=== PATIENT | male | born 1970 | race Caucasian/White ===

== ENCOUNTER 2017-12-22 14:12 | Inpatient (IN) ==
--- NOTE | 2017-12-22 14:57 | Emergency Department Note ---
ED Disposition Clinical Impression: Abscess of skin or subcutaneous tissue Qualifiers: Site of cutaneous abscess: buttock Qualified Code(s): L02.31 - Cutaneous abscess of buttock Disposition: Admitted as Observation Condition on Discharge: Good Instructions: DI for Skin Abscess Referrals: Yaakov Titus [Primary Care Provider] - - Critical Care Critical Care Time: No Attestation: On 12/22/17, the high probability of a clinically significant, sudden or life threatening deterioration of the following system(s) required my full and direct attention, intervention and personal management. The time I documented below is in addition to time spent performing reported procedures but includes the following listed in this critical care notation. Medical Decision Making - Medical Records Medical records reviewed: Yes: I reviewed the patient's medical records. - [place] Inquiry Pt receiving controlled substance: No Vital Signs: 12/22/17 14:16 12/22/17 15:37 Temperature 98.1 F Temperature Source Oral Pulse Rate [Right Brachial] 74 67 Respiratory Rate 18 18 Blood Pressure [Right Arm] 145/79 128/65 Blood Pressure Mean [Right Arm] 101 86 Blood Pressure Source [Right Arm] Automatic Cuff Automatic Cuff Blood Pressure Position [Right Arm] Sitting Sitting 02 Sat by Pulse Oximetry 96 98 Oxygen Delivery Method Room Air Room Air - Lab Data Lab results reviewed: Yes: I reviewed the patient's lab results. Lab Results 12/22/17 15:10: WBC 4.1 L, RBC 4.00 L, Hgb 11.5 L, Hct 34.9 L, MCV 87.2, MCH 28.7, MCHC 33.0, RDW 14.8, Plt Count 256, MPV 6.8 L, Neut % (Auto) 65.5, Lymph % (Auto) 21.2, [place] % (Auto) 7.4, Eos % (Auto) 5.5, Baso % (Auto) 0.5, Neut # ( Auto) 2.7, Lymph # (Auto) 0.9, [place] # (Auto) 0.3, Eos # (Auto) 0.2, Baso # (Auto ) 0.0 12/22/17 15:10: Sodium 140, Potassium 3.7, Chloride 104, Carbon Dioxide 27, Anion Gap 12.7, BUN 9, Creatinine 0.86, Estimated Creat Clear 148, Estimated GFR 95, Est GFR ( Amer) 115, Glucose 108 H, Calcium 8.5, Total Bilirubin 0.3, Direct Bilirubin 0.1, Indirect Bilirubin 0.2, AST 11 L, ALT 17, Alkaline Phosphatase 101, Total Protein 6.6, Albumin 2.6 L 12/22/17 15:10: Lactate 0.6 12/22/17 15:10: Hemoglobin A1c 5.6 Result diagrams: 12/22/17 15:10 12/22/17 15:10 Orders (Tests/Meds): ORDERS Category Date Time Status ESR [Erythrocyte Sedimentation Rate] Stat Lab 12/22/17 15:10 Received Blood Culture Stat Micro 12/22/17 15:10 Received Wound Culture and Gram Stain Stat Micro 12/22/17 15:10 Received Skin/Abscess/FB HPI - General Chief complaint: Skin/Abscess/Foreign Body Stated complaint: boil under left shoulder, anal area, under right Time Seen by Provider: 12/22/17 14:25 Mode of Arrival: Ambulatory Source of Information: Patient, Medical Record Limitations: No Limitations Description of Symptoms (Recalled from ER Triage Doc. by RN): Pt reports he has a boil under L arm that is draining x3 days, reports has a boil on R buttock that is open and draining, pt also reports has a "boil starting" under R arm - History of Present Illness HPI narrative: progressive abscess to rt buttock and axilla over the last few days at snf - no hx of mrsa or diabetes mellitus - MD complaint: abscess/boil Onset (ago): day(s) Tetanus up to date: unsure Location: buttocks Severity: moderate Associated symptoms: denies other symptoms Treatments prior to arrival: none - Related Data Home Medications Medication Instructions Recorded Confirmed Unobtainable 11/29/17 11/29/17 Allergies Allergy/AdvReac Type Severity Reaction Status Date / Time No Known Allergies Allergy Verified 11/28/17 17:53 [facility] History I have reviewed the patient's past medical history: Yes Medical History: Denies:: Diabetes Mellitus Type 1, Diabetes Mellitus Type 2, MRSA Amputation: No - Social History Alcohol Intake: never Alcohol Intake Frequency:: holidays/special occasions only - Psychiatric History Expresses thoughts of harming self/others: None Suicide Plan Description: No Plan ROS Obtained: Yes All systems reviewed & no additional complaints - Constitutional Constitutional: Denies fever(s) - Eyes Eyes: Denies change in vision - ENT Ears, Nose, Mouth, and Throat: Denies sore throat - Cardiovascular Cardiovascular: Denies chest pain at rest - Respiratory Respiratory: No chest congestion - Gastrointestinal Gastrointestingal: Denies: abdominal pain - Genitourinary Male Genitourinary: Denies hematuria - Musculoskeletal Musculoskeletal: Reports joint pain - Integumentary/Breasts Skin/Breast: Reports boil - Neurologic Neurologic: Denies seizure-like activity Physical Exam - General General appearance: in no apparent distress - Eye Eye exam: Present: PERRL, EOMI - ENT ENT exam: Present: mucous membranes dry - Neck Neck exam: Present: trachea midline - Respiratory Respiratory exam: Present: normal lung sounds bilaterally. Absent: respiratory distress - Cardiovascular Cardiovascular exam: Present: regular rate, systolic murmur - Abdominal Exam Abdominal exam: Present: soft - Extremities Exam Extremities exam: Present: pedal edema. Absent: calf tenderness - Neurological Exam Neurological exam: Present: alert, oriented X3, CN II-XII intact - Psychiatric Psychiatric exam: Present: normal affect - Skin Skin exam: Present: other (has draining abscess rt buttock and has cellulitis axilla bilat )
[2017-12-22 15:28] LABS: Basophils % 0.5 % (0.1-2.0); Eosinophils # 0.2 K/mm3 (0.0-0.4); Eosinophils % 5.5 % (0.1-12.0); Hematocrit 34.9 % (42.0-52.0); Hemoglobin 11.5 g/dL (14.1-18.0); Lymphocytes # 0.9 K/mm3 (0.7-4.5); Lymphocytes % 21.2 K/mm3 (10-50); Mean Corpuscular Hemoglobin 28.7 pg (27.0-31.2); Mean Corpuscular Volume 87.2 fl (80-94); Mean Platelet Volume 6.8 fl (7.4-10.4); Monocytes # 0.3 K/mm3 (0.1-1.0); Monocytes % 7.4 % (1.7-9.3); Neutrophils # 2.7 K/mm3 (1.8-7.8); Neutrophils % 65.5 % (37.0-80.0); Platelet Count 256 K/mm3 (142-424); Red Cell Distribution Width 14.8 % (11.5-17.5); White Blood Count 4.1 K/mm3 (4.8-10.8)
[2017-12-22 15:40] LABS: Albumin Level 2.6 gm/dL (3.4-5.0); Anion Gap 12.7 mEq/L (5-15); Bilirubin,Direct 0.1 mg/dL (0.0-0.2); Bilirubin,Indirect 0.2 mg/dL (0.0-0.9); Bilirubin,Total 0.3 mg/dL (0.2-1.0); Calcium 8.5 mg/dL (8.5-10.1); Potassium 3.7 mmoL/L (3.5-5.1); Total Protein,Serum 6.6 gm/dL (6.4-8.2)
--- NOTE | 2017-12-22 16:26 | Pharmacy Consult Notes ---
- Pharmacy Consult Date: 12/22/17 Time: 16:25 Referring provider: DR. PINEDA Reason for Consult:: VANCOMYCIN DOSING Allergies and ADEs:: Allergies Allergy/AdvReac Type Severity Reaction Status Date / Time No Known Allergies Allergy Verified 11/28/17 17:53 Home Medications:: Home Medications Medication Instructions Recorded Confirmed Type Unobtainable 11/29/17 11/29/17 History Height: 1.75 m Weight: 99.79 kg Laboratory Results:: Laboratory Results - last 24 hr 12/22/17 15:10: WBC 4.1 L, RBC 4.00 L, Hgb 11.5 L, Hct 34.9 L, MCV 87.2, MCH 28.7, MCHC 33.0, RDW 14.8, Plt Count 256, MPV 6.8 L, Neut % (Auto) 65.5, Lymph % (Auto) 21.2, [place] % (Auto) 7.4, Eos % (Auto) 5.5, Baso % (Auto) 0.5, Neut # ( Auto) 2.7, Lymph # (Auto) 0.9, [place] # (Auto) 0.3, Eos # (Auto) 0.2, Baso # (Auto ) 0.0 12/22/17 15:10: Sodium 140, Potassium 3.7, Chloride 104, Carbon Dioxide 27, Anion Gap 12.7, BUN 9, Creatinine 0.86, Estimated Creat Clear 148, Estimated GFR 95, Est GFR ( Amer) 115, Glucose 108 H, Calcium 8.5, Total Bilirubin 0.3, Direct Bilirubin 0.1, Indirect Bilirubin 0.2, AST 11 L, ALT 17, Alkaline Phosphatase 101, Total Protein 6.6, Albumin 2.6 L 12/22/17 15:10: Lactate 0.6 12/22/17 15:10: ESR 53 H 12/22/17 15:10: Hemoglobin A1c 5.6 Medical History: Denies:: Diabetes Mellitus Type 1, Diabetes Mellitus Type 2, MRSA Assessment and Plan - Assessment and plan all Dx Assessment and Plan for all problems:: BASED ON PATIENT FACTORS, RECOMMEND VANCOMYCIN 2 GM IV Q12H. WILL OBTAIN VANCOMYCIN TROUGH LEVEL PRIOR TO 4TH DOSE. PHARMACY WILL FOLLOW DAILY AND ADJUST APPROPRIATE.
[2017-12-23 06:45] LABS: Basophils % 1.5 % (0.1-2.0); Eosinophils # 0.2 K/mm3 (0.0-0.4); Eosinophils % 6.1 % (0.1-12.0); Hematocrit 34.1 % (42.0-52.0); Hemoglobin 10.9 g/dL (14.1-18.0); Lymphocytes # 0.8 K/mm3 (0.7-4.5); Lymphocytes % 25.9 K/mm3 (10-50); Mean Corpuscular HGB Conc 32.1 g/dL (31.8-35.4); Mean Corpuscular Hemoglobin 28.7 pg (27.0-31.2); Mean Corpuscular Volume 89.4 fl (80-94); Mean Platelet Volume 7.3 fl (7.4-10.4); Monocytes # 0.3 K/mm3 (0.1-1.0); Monocytes % 8.8 % (1.7-9.3); Neutrophils # 1.8 K/mm3 (1.8-7.8); Neutrophils % 57.8 % (37.0-80.0); Platelet Count 226 K/mm3 (142-424); Red Blood Count 3.82 M/mm3 (4.60-6.20); Red Cell Distribution Width 14.9 % (11.5-17.5); White Blood Count 3.1 K/mm3 (4.8-10.8)
--- NOTE | 2017-12-23 06:45 | Consult Report ---
*Admission Date: 12/22/17 *Chief complaint: BOIL *History of present illness: Patient is a 47-year-old white male who is a resident at a detention in [facility]. He has reported history of Crohn's disease and seizure disorder. He has an area on the right gluteal region which he states is been present for 5-7 days. He states that 2 days ago he had developed some drainage. He was brought to the emergency department for evaluation and was admitted for inpatient management. He was started on intravenous antibiotics and surgical consultation was obtained. Of note, the patient also complains of "boils" under each arm. He states that the left side seems to be worse than the right. Review of Systems - Review of Systems Review of systems:: pertinent systems reviewed and negative unless documented below - *Neurologic Denies seizure-like activity [facility] History Medical History: Reports:: Hypertension, Seizures Denies:: Cancer, Diabetes Mellitus Type 1, Diabetes Mellitus Type 2, Internal Pacemaker, MRSA Other Medical History: Reports: Anemia Other Surgeries: No: Pacemaker Amputation: No Fractures: No - *Social History Educational Level: Completed GED/General Educational Development Smoking Status: Never smoker Alcohol Intake: never Alcohol Intake Frequency:: holidays/special occasions only Occupational Status: disabled Housing: other - Psychiatric History Expresses thoughts of harming self/others: None Suicide Plan Description: No Plan *Family Hx:: Heart Attack Meds Home Medications Medication Instructions Recorded Confirmed Type Atorvastatin Calcium [Atorvastatin 10 mg PO DAILY 12/22/17 12/22/17 History 10mg Tab] Calcium Carbonate/Vitamin D3 1 each PO DAILY 12/22/17 12/22/17 History [Oyster Shell Calcium Tablet] Citalopram Hydrobromide [Celexa 20 mg PO BID 12/22/17 12/22/17 History 20mg Tablet] Folic Acid [Folic Acid 1mg tablet] 1 tab PO DAILY 12/22/17 12/22/17 History Gabapentin [Gabapentin 800mg Tab] 800 mg PO TID 12/22/17 12/22/17 History Iron [Iron 18mg Tab] 18 mg PO DAILY 12/22/17 12/22/17 History Lisinopril [Lisinopril 10mg Tab] 10 mg PO DAILY 12/22/17 12/22/17 History Meloxicam 15 mg PO DAILY 12/22/17 12/22/17 History Mirtazapine [Remeron] 15 mg PO PM 12/22/17 12/22/17 History [place]-3 Acid Ethyl Esters 1 gm PO DAILY 12/22/17 12/22/17 History Pantoprazole Sodium [Pantoprazole 20 mg PO DAILY 12/22/17 12/22/17 History 20mg Tab] Quetiapine Fumarate [Seroquel] 300 mg PO DAILY 12/22/17 12/22/17 History Ropinirole HCl [Requip] 1 mg PO TID 12/22/17 12/22/17 History Tamsulosin HCl [Flomax 0.4mg 0.4 mg PO HS 12/22/17 12/22/17 History capsule] carBAMazepine [carBAMazepine 200mg 200 mg PO BID 12/22/17 12/22/17 History Tablet] clonazePAM [Clonazepam] 1 mg PO BID 12/22/17 12/22/17 History lamoTRIgine [Lamotrigine] 25 mg PO BID 12/22/17 12/22/17 History Allergies Allergy/AdvReac Type Severity Reaction Status Date / Time No Known Allergies Allergy Verified 11/28/17 17:53 Exam Vital signs and Labs for Last 24 Hours: Temp Pulse Resp BP Pulse Ox 98.0 F 63 20 140/80 98 12/23/17 04:14 12/23/17 04:14 12/23/17 04:14 12/23/17 04:14 12/23/17 04:14 Laboratory Results - last 24 hr 12/22/17 15:10: WBC 4.1 L, RBC 4.00 L, Hgb 11.5 L, Hct 34.9 L, MCV 87.2, MCH 28.7, MCHC 33.0, RDW 14.8, Plt Count 256, MPV 6.8 L, Neut % (Auto) 65.5, Lymph % (Auto) 21.2, [place] % (Auto) 7.4, Eos % (Auto) 5.5, Baso % (Auto) 0.5, Neut # ( Auto) 2.7, Lymph # (Auto) 0.9, [place] # (Auto) 0.3, Eos # (Auto) 0.2, Baso # (Auto ) 0.0 12/22/17 15:10: Sodium 140, Potassium 3.7, Chloride 104, Carbon Dioxide 27, Anion Gap 12.7, BUN 9, Creatinine 0.86, Estimated Creat Clear 148, Estimated GFR 95, Est GFR ( Amer) 115, Glucose 108 H, Calcium 8.5, Total Bilirubin 0.3, Direct Bilirubin 0.1, Indirect Bilirubin 0.2, AST 11 L, ALT 17, Alkaline Phosphatase 101, Total Protein 6.6, Albumin 2.6 L 12/22/17 15:10: Lactate 0.6 12/22/17 15:10: ESR 53 H 12/22/17 15:10: Hemoglobin A1c 5.6 I & O for Last 24 hours: Intake & Output 12/20/17 12/21/17 12/22/17 12/23/17 11:59 11:59 11:59 11:59 Intake Total 240 / 240 Balance 240 / 240 Weight 209 lb 4 oz Microbiology Reports for the Last 24 Hours: Microbiology 12/22/17 15:10 Buttock Gram Stain - Final - Constitutional no acute distress, chronically ill appearing - *Routine HEENT Exam Head: Present: normocephalic - *Routine Respiratory Exam Present: CTA bilaterally - *Routine Cardiovascular Exam Present: RRR - *Routine Abdominal Exam Present: soft - *Routine Skin Exam Comments: Inspection and palpation of bilateral axilla reveals findings consistent with chronic hidradenitis with some induration and very mild erythema without fluctuance. On the right gluteal region there is a area of appreciable diameter of erythema. Centrally there is a neck soft tissue infection with necrotic exudate. There is some minor drainage. Results - Labs 12/22/17 15:10 12/22/17 15:10 Laboratory Results - last 24 hr 12/22/17 15:10: WBC 4.1 L, RBC 4.00 L, Hgb 11.5 L, Hct 34.9 L, MCV 87.2, MCH 28.7, MCHC 33.0, RDW 14.8, Plt Count 256, MPV 6.8 L, Neut % (Auto) 65.5, Lymph % (Auto) 21.2, [place] % (Auto) 7.4, Eos % (Auto) 5.5, Baso % (Auto) 0.5, Neut # ( Auto) 2.7, Lymph # (Auto) 0.9, [place] # (Auto) 0.3, Eos # (Auto) 0.2, Baso # (Auto ) 0.0 12/22/17 15:10: Sodium 140, Potassium 3.7, Chloride 104, Carbon Dioxide 27, Anion Gap 12.7, BUN 9, Creatinine 0.86, Estimated Creat Clear 148, Estimated GFR 95, Est GFR ( Amer) 115, Glucose 108 H, Calcium 8.5, Total Bilirubin 0.3, Direct Bilirubin 0.1, Indirect Bilirubin 0.2, AST 11 L, ALT 17, Alkaline Phosphatase 101, Total Protein 6.6, Albumin 2.6 L 12/22/17 15:10: Lactate 0.6 12/22/17 15:10: ESR 53 H 12/22/17 15:10: Hemoglobin A1c 5.6 Assessment and Plan - Assessment and plan all Dx Assessment and Plan for all problems:: Plan for incision and drainage and debridement of room to initiate wet-to-dry dressing changes. Would not perform any operative intervention on the apparent hidradenitis bilateral axilla but treat with antibiotics medically at this time.
[2017-12-23 06:54] LABS: Anion Gap 9.8 mEq/L (5-15); Potassium 3.8 mmoL/L (3.5-5.1)
--- NOTE | 2017-12-23 07:39 | Pharmacy Consult Notes ---
[facility] Pharmacy VTE Monitoring - Patient Demographics Admission date: 12/22/17 Report Date: 12/23/17 Time: 07:39 Allergies/Adverse Reactions: Patient Allergies No Known Allergies Allergy (Verified 11/28/17 17:53) Height: 1.75 m Weight: 94.914 kg Patient Problems: Current Active Problems Abscess of skin or subcutaneous tissue (Acute) - VTE Risk Labs: VTE Related Lab Results Hgb 10.9 g/dL (14.1-18.0) L 12/23/17 06:31 Hct 34.1 % (42.0-52.0) L 12/23/17 06:31 Plt Count 226 K/mm3 (142-424) 12/23/17 06:31 BUN 9 mg/dL (7-18) 12/23/17 06:31 Creatinine 0.93 mg/dL (0.70-1.30) 12/23/17 06:31 Estimated Creat Clear 130 mL/min (0-300) 12/23/17 06:31 VTE Score: 2 - Prophylaxis VTE Prophylaxis Ordered?: Yes Types of VTE Prophylaxis: TEDS Knee High Location of Applied Device: Bilateral Lower Extremeties - VTE Diagnosis Confirmed Treatment or plan recommended: Continue Current Treatment
--- NOTE | 2017-12-23 09:11 | History & Physical Report ---
*Admission Date: 12/22/17 *Chief complaint: skin infection *History of present illness: Patient is a 47-year-old white male who is a resident at a [facility] in [facility]. He has reported history of Crohn's disease and seizure disorder. He has an area on the right gluteal region which he states is been present for 5-7 days. He states that 2 days ago he had developed some drainage. He was brought to the emergency department for evaluation and was admitted for inpatient management. He was started on intravenous antibiotics and surgical consultation was obtained. Of note, the patient also complains of "boils" under each arm. He states that the left side seems to be worse than the right. [facility] History I have reviewed the patient's past medical history: Yes Medical History: Reports:: Hypertension, Seizures Denies:: Cancer, Diabetes Mellitus Type 1, Diabetes Mellitus Type 2, Internal Pacemaker, MRSA Other Medical History: Reports: Anemia Other Surgeries: No: Pacemaker Amputation: No Fractures: No - *Social History Educational Level: Completed GED/General Educational Development Smoking Status: Never smoker Alcohol Intake: never Alcohol Intake Frequency:: holidays/special occasions only Occupational Status: disabled Housing: other - Psychiatric History Expresses thoughts of harming self/others: None Suicide Plan Description: No Plan *Family Hx:: Heart Attack Review of Systems - Review of Systems Review of systems:: pertinent systems reviewed and negative unless documented below - Constitutional Reports weakness, Denies fever(s) - Eyes Denies double vision - ENT Denies change in voice, Denies sore throat - *Cardiovascular Denies chest pain, Denies shortness of breath - *Respiratory Denies cough - *Gastrointestinal Denies abdominal pain - *Genitourinary Denies blood in urine - *Musculoskeletal Denies joint pain, Denies joint swelling - Integumentary/Breasts Reports boil - *Neurologic Denies headache(s), Denies seizure-like activity - Psychiatric Denies anxiety Meds Home Medications Medication Instructions Recorded Confirmed Type Atorvastatin Calcium [Atorvastatin 10 mg PO HS 12/22/17 12/23/17 History 10mg Tab] Calcium Carbonate/Vitamin D3 1 each PO DAILY 12/22/17 12/22/17 History [Oyster Shell Calcium Tablet] Citalopram Hydrobromide [Celexa 20 mg PO BID 12/22/17 12/22/17 History 20mg Tablet] Folic Acid [Folic Acid 1mg tablet] 1 mg PO DAILY 12/22/17 12/23/17 History Gabapentin [Gabapentin 800mg Tab] 800 mg PO TID 12/22/17 12/22/17 History Lisinopril [Lisinopril 10mg Tab] 10 mg PO DAILY 12/22/17 12/22/17 History Meloxicam 15 mg PO DAILY 12/22/17 12/22/17 History Mirtazapine [Remeron] 15 mg PO HS 12/22/17 12/23/17 History [place]-3 Acid Ethyl Esters 1 gm PO BID 12/22/17 12/23/17 History Pantoprazole Sodium [Pantoprazole 20 mg PO DAILY 12/22/17 12/22/17 History 20mg Tab] Quetiapine Fumarate [Seroquel] 600 mg PO HS 12/22/17 12/23/17 History Ropinirole HCl [Requip] 1 mg PO TID 12/22/17 12/22/17 History Tamsulosin HCl [Flomax 0.4mg 0.4 mg PO HS 12/22/17 12/22/17 History capsule] carBAMazepine [carBAMazepine 200mg 400 mg PO BID 12/22/17 12/23/17 History Tablet] clonazePAM [Clonazepam] 1 mg PO BID 12/22/17 12/22/17 History lamoTRIgine [Lamotrigine] 25 mg PO BID 12/22/17 12/22/17 History Ferrous Sulfate [Iron] 65 mg PO DAILY 12/23/17 12/23/17 History Allergies Allergy/AdvReac Type Severity Reaction Status Date / Time No Known Allergies Allergy Verified 11/28/17 17:53 Exam Vital signs and Labs for Last 24 Hours: Temp Pulse Resp BP Pulse Ox 97.9 F 77 20 115/78 91 L 12/23/17 08:00 12/23/17 08:00 12/23/17 08:00 12/23/17 08:00 12/23/17 08:00 Laboratory Results - last 24 hr 12/22/17 15:10: WBC 4.1 L, RBC 4.00 L, Hgb 11.5 L, Hct 34.9 L, MCV 87.2, MCH 28.7, MCHC 33.0, RDW 14.8, Plt Count 256, MPV 6.8 L, Neut % (Auto) 65.5, Lymph % (Auto) 21.2, [place] % (Auto) 7.4, Eos % (Auto) 5.5, Baso % (Auto) 0.5, Neut # (Auto) 2.7, Lymph # (Auto) 0.9, [place] # (Auto) 0.3, Eos # (Auto) 0.2, Baso # (Auto) 0.0 12/22/17 15:10: Sodium 140, Potassium 3.7, Chloride 104, Carbon Dioxide 27, Anion Gap 12.7, BUN 9, Creatinine 0.86, Estimated Creat Clear 148, Estimated GFR 95, Est GFR ( Amer) 115, Glucose 108 H, Calcium 8.5, Total Bilirubin 0.3, Direct Bilirubin 0.1, Indirect Bilirubin 0.2, AST 11 L, ALT 17, Alkaline Phosphatase 101, Total Protein 6.6, Albumin 2.6 L 12/22/17 15:10: Lactate 0.6 12/22/17 15:10: ESR 53 H 12/22/17 15:10: Hemoglobin A1c 5.6 12/23/17 06:31: WBC 3.1 L, RBC 3.82 L, Hgb 10.9 L, Hct 34.1 L, MCV 89.4, MCH 28.7, MCHC 32.1, RDW 14.9, Plt Count 226, MPV 7.3 L, Neut % (Auto) 57.8, Lymph % (Auto) 25.9, [place] % (Auto) 8.8, Eos % (Auto) 6.1, Baso % (Auto) 1.5, Neut # (Auto) 1.8, Lymph # (Auto) 0.8, [place] # (Auto) 0.3, Eos # (Auto) 0.2, Baso # (Auto) 0.0 12/23/17 06:31: Sodium 142, Potassium 3.8, Chloride 108 H, Carbon Dioxide 28, Anion Gap 9.8, BUN 9, Creatinine 0.93, Estimated Creat Clear 130, Estimated GFR 87, Est GFR ( Amer) 105, Glucose 96, Calcium 8.0 L, Magnesium 1.9 I & O for Last 24 hours: Intake & Output 12/20/17 12/21/17 12/22/17 12/23/17 11:59 11:59 11:59 11:59 Intake Total 1590 / 1590 Balance 1590 / 1590 Weight 209 lb 4 oz Microbiology Reports for the Last 24 Hours: Microbiology 12/22/17 15:10 Buttock Gram Stain - Final 12/22/17 15:10 Buttock Wound Culture - Preliminary - Constitutional no acute distress - *Routine HEENT Exam Head: Present: normocephalic Eye: Present: EOMI, PERRL ENT: Present: mucous membranes dry - *Routine Neck Exam Present: supple. Absent: JVD - *Routine Respiratory Exam Present: CTA bilaterally - *Routine Cardiovascular Exam Present: RRR, murmur - *Routine Abdominal Exam Present: soft. Absent: tenderness - *Routine Extremities Exam Absent: calf tenderness - *Routine Skin Exam Comments: has cellulitis bilat axilla and has rt buttock abscess about 2x3 cm - *Routine Neurological Exam Present: alert, oriented X3, CN II-XII intact - Routine Psychiatric Exam Present: normal affect Assessment and Plan (1) Abscess of skin or subcutaneous tissue Current visit: Yes Status: Acute Qualifiers: Site of cutaneous abscess: buttock Qualified Code(s): L02.31 - Cutaneous abscess of buttock Category: Medical Code(s): L02.91 - Cutaneous abscess, unspecified (2) Anemia Current visit: Yes Status: Acute Qualifiers: Anemia type: unspecified type Qualified Code(s): D64.9 - Anemia, unspecified Category: Medical Code(s): D64.9 - Anemia, unspecified
--- NOTE | 2017-12-23 12:16 | Progress Note ---
[facility] Anesthesia Checklist - Patient Identification Patient Identification: Arm Band, Verbal (Name & ) - Structural Data Admitted From: Long-term Nursing Facility ([facility]) Consent for Planned Operative Procedure(s) Verified: Yes Verified Documents: Surgical Consent, History and Physical - NPO Status Verified Time NPO: 00:00 - Additional verifications Anesthesia Reactions: No - Airway Assessment C-Spine Mobility Assessed: Yes TMJ Mobility Assessed: Yes Dentition: Edentulous - Neurological Assessment Level of Consciousness: Awake Hx Seizures: Yes (3 days ago) Numbness or tingling in extremities: No - Anesthesia Plan Anesthesia Risk discussed: Yes Anesthesia Plan: Verified ASA Class: III Anesthesia Type: General [facility] Anesthesia HX I have reviewed the patient's past medical history: Yes Medical History: Reports:: Hypertension, Seizures (epilepsy) Denies:: Cancer, Diabetes Mellitus Type 1, Diabetes Mellitus Type 2, Internal Pacemaker, MRSA Other Medical History: Reports: Anemia Other Surgeries: No: Pacemaker Amputation: No Fractures: No *Family Hx:: Heart Attack
--- NOTE | 2017-12-23 13:15 | Operative Note ---
Date of procedure: 12/23/17 Pre-op Diagnosis:: Right gluteal abscess Post-op Diagnosis:: Same Procedure performed:: Incision and drainage of right gluteal abscess with debridement of skin and subcutaneous tissues Surgeon:: Rosalio Merchant MD Anesthesia: LMA Estimated blood loss (mL): 15 Clinical Note:: Patient is a 47-year-old white male who is a resident at a [facility] in [facility]. He was brought to the emergency department yesterday with a soft tissue infection of the right gluteal region which has been present for several days. Patient states that it has been present for 5-7 days. He was admitted for inpatient management and surgical consultation for debridement. Operative findings:: Endings of necrosis of the superficial tissues with some fibrinous exudate. A few pockets of remaining pus. Operative note:: Consent was obtained patient was taken to the operating room. General anesthesia was induced via LMA. He was positioned in the lateral position. The area was prepped and draped in the standard surgical fashion. There was sloughing of exudative somewhat necrotic tissue. This was debrided from its remaining attachments with Metzenbaum dissection. Probing of the wound revealed a few pockets of subcutaneous purulence. Cultures were sent. Skin and superficial inflamed subcutaneous tissues were debrided in a circular fashion using electrocautery. This was debrided to relatively healthy appearing subcutaneous tissues. Hemostasis was achieved with electrocautery. Wound was irrigated. Local anesthetic was infiltrated. The wound was packed with a moistened saline 4 x 4 gauze and covered with clean dry sterile dressing. Condition: stable Disposition: PACU Specimens:: Cultures and debrided tissue Complications:: None
--- NOTE | 2017-12-23 13:18 | Progress Note ---
[facility] Anesthesia Record Part II Discharge Time: 13:45 Destination: Medical Surgical Department PACU nurse assessment reviewed?: Yes Patient Condition:: Good Anesthesia Complications:: None
--- NOTE | 2017-12-23 13:18 | Progress Note ---
[facility] Anesthesia Record Part I Intake, IV Amount: 600 Estimated blood loss (mL): 5 Urine output (mL): 0 Blood Products used (#): none Blood Pressure: 118/68 SaO2: 96 Pulse Rate: 61 Respiratory Rate: 12 Temperature: 97.9 F Patient is:: Awake, Stable Stable to PACU at:: 13:15
--- NOTE | 2017-12-24 08:18 | Pharmacy Consult Notes ---
- Pharmacy Consult Date: 12/24/17 Time: 08:12 Referring provider: DR. PINEDA Reason for Consult:: VANCOMYCIN TROUGH LEVEL Allergies and ADEs:: Allergies Allergy/AdvReac Type Severity Reaction Status Date / Time No Known Allergies Allergy Verified 11/28/17 17:53 Home Medications:: Home Medications Medication Instructions Recorded Confirmed Type Atorvastatin Calcium [Atorvastatin 10 mg PO HS 12/22/17 12/23/17 History 10mg Tab] Calcium Carbonate/Vitamin D3 1 each PO DAILY 12/22/17 12/22/17 History [Oyster Shell Calcium Tablet] Citalopram Hydrobromide [Celexa 20 mg PO BID 12/22/17 12/22/17 History 20mg Tablet] Folic Acid [Folic Acid 1mg tablet] 1 mg PO DAILY 12/22/17 12/23/17 History Gabapentin [Gabapentin 800mg Tab] 800 mg PO TID 12/22/17 12/22/17 History Lisinopril [Lisinopril 10mg Tab] 10 mg PO DAILY 12/22/17 12/22/17 History Meloxicam 15 mg PO DAILY 12/22/17 12/22/17 History Mirtazapine [Remeron] 15 mg PO HS 12/22/17 12/23/17 History [place]-3 Acid Ethyl Esters 1 gm PO BID 12/22/17 12/23/17 History Pantoprazole Sodium [Pantoprazole 20 mg PO DAILY 12/22/17 12/22/17 History 20mg Tab] Quetiapine Fumarate [Seroquel] 600 mg PO HS 12/22/17 12/23/17 History Ropinirole HCl [Requip] 1 mg PO TID 12/22/17 12/22/17 History Tamsulosin HCl [Flomax 0.4mg 0.4 mg PO HS 12/22/17 12/22/17 History capsule] carBAMazepine [carBAMazepine 200mg 400 mg PO BID 12/22/17 12/23/17 History Tablet] clonazePAM [Clonazepam] 1 mg PO BID 12/22/17 12/22/17 History lamoTRIgine [Lamotrigine] 25 mg PO BID 12/22/17 12/22/17 History Ferrous Sulfate [Iron] 65 mg PO DAILY 12/23/17 12/23/17 History Height: 1.75 m Weight: 94.914 kg Laboratory Results:: Laboratory Results - last 24 hr 12/24/17 05:30: Vancomycin Trough 17.7 Medical History: Reports:: Hypertension, Seizures Denies:: Cancer, Diabetes Mellitus Type 1, Diabetes Mellitus Type 2, Internal Pacemaker, MRSA Assessment and Plan (1) Abscess of skin or subcutaneous tissue Current visit: Yes Status: Acute Qualifiers: Site of cutaneous abscess: buttock Qualified Code(s): L02.31 - Cutaneous abscess of buttock Category: Medical Code(s): L02.91 - Cutaneous abscess, unspecified (2) Anemia Current visit: Yes Status: Acute Qualifiers: Anemia type: unspecified type Qualified Code(s): D64.9 - Anemia, unspecified Category: Medical Code(s): D64.9 - Anemia, unspecified - Assessment and plan all Dx Assessment and Plan for all problems:: BASED ON VANCOMYCIN TROUGH LEVEL AND PATIENT FACTORS, RECOMMEND CONTINUING VANCOMYCIN 2 GM IV Q12H. PHARMACY WILL CONTINUE TO MONITOR DAILY AND ADJUST APPROPRIATE.
--- NOTE | 2017-12-24 09:35 | Progress Note ---
Internal Medicine - PN: Subj *Date: 12/24/17 *Time: 08:44 Interval history: this wm doing better Exam Vital signs and Labs for Last 24 Hours: Temp Pulse Resp BP Pulse Ox 97.5 F L 63 16 114/70 97 12/24/17 08:00 12/24/17 08:00 12/24/17 08:00 12/24/17 08:00 12/24/17 08:00 Laboratory Results - last 24 hr 12/24/17 05:30: Vancomycin Trough 17.7 I & O for Last 24 hours: Intake & Output 12/21/17 12/22/17 12/23/17 12/24/17 11:59 11:59 11:59 11:59 Intake Total 1590 / 1590 1320 / 1320 Output Total 0 / 0 Balance 1590 / 1590 1320 / 1320 Weight 209 lb 4 oz 209 lb 4 oz Microbiology Reports for the Last 24 Hours: Microbiology 12/22/17 15:10 Buttock Gram Stain - Final 12/22/17 15:10 Buttock Wound Culture - Preliminary Staphylococcus aureus 12/23/17 13:00 Buttock - Abscess Gram Stain - Final 12/23/17 13:00 Buttock - Abscess Abscess Culture - Preliminary - Constitutional no acute distress - *Routine HEENT Exam Head: Present: normocephalic Eye: Present: EOMI, PERRL ENT: Present: mucous membranes dry - *Routine Neck Exam Absent: JVD - *Routine Respiratory Exam Present: CTA bilaterally - *Routine Cardiovascular Exam Present: RRR - *Routine Abdominal Exam Present: soft - *Routine Extremities Exam Absent: edema - *Routine Skin Exam Comments: resolving abscess s/p surg - *Routine Neurological Exam Present: alert, CN II-XII intact - Routine Psychiatric Exam Present: normal affect Assessment and Plan (1) Abscess of skin or subcutaneous tissue Current visit: Yes Status: Acute Qualifiers: Site of cutaneous abscess: buttock Qualified Code(s): L02.31 - Cutaneous abscess of buttock Category: Medical Code(s): L02.91 - Cutaneous abscess, unspecified (2) Anemia Current visit: Yes Status: Acute Qualifiers: Anemia type: unspecified type Qualified Code(s): D64.9 - Anemia, unspecified Category: Medical Code(s): D64.9 - Anemia, unspecified
--- NOTE | 2017-12-24 09:57 | Progress Note ---
Subjective Narrative: Still sore. Exam Vital signs and Labs for Last 24 Hours: Temp Pulse Resp BP Pulse Ox 97.5 F L 63 16 114/70 97 12/24/17 08:00 12/24/17 08:00 12/24/17 08:00 12/24/17 08:00 12/24/17 08:00 Laboratory Results - last 24 hr 12/24/17 05:30: Vancomycin Trough 17.7 I & O for Last 24 hours: Intake & Output 12/21/17 12/22/17 12/23/17 12/24/17 11:59 11:59 11:59 11:59 Intake Total 1590 / 1590 1320 / 1320 Output Total 0 / 0 Balance 1590 / 1590 1320 / 1320 Weight 209 lb 4 oz 209 lb 4 oz Microbiology Reports for the Last 24 Hours: Microbiology 12/22/17 15:10 Buttock Gram Stain - Final 12/22/17 15:10 Buttock Wound Culture - Preliminary Staphylococcus aureus Strep pyogenes (grp a) 12/23/17 13:00 Buttock - Abscess Gram Stain - Final 12/23/17 13:00 Buttock - Abscess Abscess Culture - Preliminary - *Routine Skin Exam Comments: Wound with minimal focal necrosis of subcutaneous tissue. Still with appreciable induration and erythema (cellulitis) Progress Note: A&P (1) Abscess of skin or subcutaneous tissue Status: Acute Current Visit: Yes (2) Anemia Status: Acute Current Visit: Yes Assessment and Plan for All Diagnoses:: Due to ongoing evidence of soft tissue infection with induration and marketed cellulitis would plan to continue intravenous antibiotics for now. Continue with dressing changes twice daily with saline moistened gauze packing.
--- NOTE | 2017-12-25 06:46 | Progress Note ---
Subjective Patient reports: still having pain Exam Vital signs and Labs for Last 24 Hours: Temp Pulse Resp BP Pulse Ox 98.1 F 65 17 138/79 96 12/25/17 04:00 12/25/17 04:00 12/25/17 04:00 12/25/17 04:00 12/25/17 04:00 Laboratory Results - last 24 hr 12/24/17 05:30: Vancomycin Trough 17.7 I & O for Last 24 hours: Intake & Output 12/22/17 12/23/17 12/24/17 12/25/17 11:59 11:59 11:59 11:59 Intake Total 1590 / 1590 1320 / 1320 2080 Output Total 0 / 0 Balance 1590 / 1590 1320 / 1320 2080 Weight 209 lb 4 oz 209 lb 4 oz 209 lb 3.993 oz Microbiology Reports for the Last 24 Hours: Microbiology 12/22/17 15:10 Blood Blood Culture - Preliminary NO GROWTH AFTER 48 HOURS 12/22/17 15:10 Blood Blood Culture - Preliminary NO GROWTH AFTER 48 HOURS 12/22/17 15:10 Buttock Gram Stain - Final 12/22/17 15:10 Buttock Wound Culture - Preliminary Staphylococcus aureus Strep pyogenes (grp a) 12/23/17 13:00 Buttock - Abscess Gram Stain - Final 12/23/17 13:00 Buttock - Abscess Abscess Culture - Preliminary - Constitutional no acute distress - *Routine Skin Exam Comments: left axilla with focal SQ swelling and induration. No axillary cellulitis. right buttock wound margin with blush, but no "spreading cellulitis" Progress Note: A&P (1) Abscess of skin or subcutaneous tissue Status: Acute Assessment and plan: continue abx continue dressing changes to buttock wound may require I&D of left axilla (re-evaluate in AM) Current Visit: Yes (2) Anemia Status: Acute Current Visit: Yes
--- NOTE | 2017-12-25 13:14 | Progress Note ---
Internal Medicine - PN: Subj *Date: 12/25/17 *Time: 09:15 Exam Vital signs and Labs for Last 24 Hours: Temp Pulse Resp BP Pulse Ox 97.8 F 60 20 131/73 97 12/25/17 08:00 12/25/17 08:00 12/25/17 08:00 12/25/17 08:00 12/25/17 08:00 I & O for Last 24 hours: Intake & Output 12/23/17 12/24/17 12/25/17 12/26/17 11:59 11:59 11:59 11:59 Intake Total 1590 / 1590 1320 / 1320 2080 Output Total 0 / 0 Balance 1590 / 1590 1320 / 1320 2080 Weight 209 lb 4 oz 209 lb 4 oz 209 lb 3.993 oz Microbiology Reports for the Last 24 Hours: Microbiology 12/23/17 13:00 Buttock - Abscess Gram Stain - Final 12/23/17 13:00 Buttock - Abscess Abscess Culture - Preliminary Gram Positive Cocci 12/22/17 15:10 Buttock Gram Stain - Final 12/22/17 15:10 Buttock Wound Culture - Final Staphylococcus aureus Strep pyogenes (grp a) 12/22/17 15:10 Blood Blood Culture - Preliminary NO GROWTH AFTER 48 HOURS 12/22/17 15:10 Blood Blood Culture - Preliminary NO GROWTH AFTER 48 HOURS - *Routine HEENT Exam Head: Present: normocephalic Eye: Present: EOMI, PERRL ENT: Present: mucous membranes moist - *Routine Neck Exam Present: supple. Absent: lymphadenopathy - *Routine Respiratory Exam Present: CTA bilaterally - *Routine Cardiovascular Exam Present: RRR - *Routine Abdominal Exam Present: soft, normoactive bowel sounds. Absent: tenderness - *Routine Extremities Exam Absent: cyanosis, clubbing, edema - *Routine Skin Exam Present: warm, wounds. Absent: rash - *Routine Neurological Exam Present: alert, oriented X3 - Detailed Skin Exam left arm Body image: 1 - enlarged lymp node slight redness no drainage. dressing to cocoyx Assessment and Plan (1) Abscess of skin or subcutaneous tissue Current visit: Yes Status: Acute Qualifiers: Site of cutaneous abscess: buttock Qualified Code(s): L02.31 - Cutaneous abscess of buttock Category: Medical Code(s): L02.91 - Cutaneous abscess, unspecified (2) Anemia Current visit: Yes Status: Acute Qualifiers: Anemia type: unspecified type Qualified Code(s): D64.9 - Anemia, unspecified Category: Medical Code(s): D64.9 - Anemia, unspecified - Assessment and plan all Dx Assessment and Plan for all problems:: Rounded with Dr. Taylor all orders per Claudia continue to monitor abcess
[2017-12-26 05:51] LABS: Basophils % 1.1 % (0.1-2.0); Eosinophils # 0.1 K/mm3 (0.0-0.4); Eosinophils % 3.7 % (0.1-12.0); Hematocrit 36.9 % (42.0-52.0); Hemoglobin 11.9 g/dL (14.1-18.0); Lymphocytes # 1.2 K/mm3 (0.7-4.5); Lymphocytes % 29.8 K/mm3 (10-50); Mean Corpuscular HGB Conc 32.3 g/dL (31.8-35.4); Mean Corpuscular Hemoglobin 28.4 pg (27.0-31.2); Mean Corpuscular Volume 88.1 fl (80-94); Mean Platelet Volume 6.6 fl (7.4-10.4); Monocytes # 0.3 K/mm3 (0.1-1.0); Monocytes % 7.3 % (1.7-9.3); Neutrophils # 2.3 K/mm3 (1.8-7.8); Neutrophils % 58.2 % (37.0-80.0); Platelet Count 267 K/mm3 (142-424); Red Blood Count 4.18 M/mm3 (4.60-6.20); Red Cell Distribution Width 15.1 % (11.5-17.5); White Blood Count 3.9 K/mm3 (4.8-10.8)
[2017-12-26 06:07] LABS: Albumin Level 2.1 gm/dL (3.4-5.0); Albumin/Globulin Ratio 0.6 (1.1-1.8); Anion Gap 10.6 mEq/L (5-15); Bilirubin,Total 0.3 mg/dL (0.2-1.0); Calcium 8.3 mg/dL (8.5-10.1); Globulin 3.6 gm/dl (1.3-3.2); Potassium 3.6 mmoL/L (3.5-5.1); Total Protein,Serum 5.7 gm/dL (6.4-8.2)
--- NOTE | 2017-12-26 07:49 | Progress Note ---
Subjective Patient reports: no new complaints Exam Vital signs and Labs for Last 24 Hours: Temp Pulse Resp BP Pulse Ox 98.0 F 60 16 163/79 96 12/26/17 03:41 12/26/17 03:41 12/26/17 03:41 12/26/17 03:41 12/26/17 03:41 Laboratory Results - last 24 hr 12/26/17 05:28: WBC 3.9 L D, RBC 4.18 L, Hgb 11.9 L, Hct 36.9 L, MCV 88.1, MCH 28.4, MCHC 32.3, RDW 15.1, Plt Count 267, MPV 6.6 L, Neut % (Auto) 58.2, Lymph % (Auto) 29.8, [place] % (Auto) 7.3, Eos % (Auto) 3.7, Baso % (Auto) 1.1, Neut # (Auto) 2.3, Lymph # (Auto) 1.2, [place] # (Auto) 0.3, Eos # (Auto) 0.1, Baso # (Auto) 0.0 12/26/17 05:28: Sodium 140, Potassium 3.6, Chloride 107, Carbon Dioxide 26, Anion Gap 10.6, BUN 4 L D, Creatinine 0.73 D, Estimated Creat Clear 166, Estimated GFR 115, Est GFR ( Amer) 139 D, Glucose 85, Calcium 8.3 L, Total Bilirubin 0.3, AST 15, ALT 17, Alkaline Phosphatase 105, Total Protein 5.7 L, Albumin 2.1 L, Globulin 3.6 H, Albumin/Globulin Ratio 0.6 L 12/26/17 05:28: Vancomycin Trough 23.6 H I & O for Last 24 hours: Intake & Output 12/23/17 12/24/17 12/25/17 12/26/17 11:59 11:59 11:59 11:59 Intake Total 1590 / 1590 1320 / 1320 2080 Output Total 0 / 0 Balance 1590 / 1590 1320 / 1320 2080 Weight 209 lb 4 oz 209 lb 4 oz 209 lb 3.993 oz Microbiology Reports for the Last 24 Hours: Microbiology 12/23/17 13:00 Buttock - Abscess Gram Stain - Final 12/23/17 13:00 Buttock - Abscess Abscess Culture - Preliminary Staphylococcus aureus 12/22/17 15:10 Buttock Gram Stain - Final 12/22/17 15:10 Buttock Wound Culture - Final Staphylococcus aureus Strep pyogenes (grp a) - *Routine Skin Exam Comments: Wound clean. Erythema regressing. Induration improved. Left axilla less tender, less indurated. Progress Note: A&P (1) Abscess of skin or subcutaneous tissue Status: Acute Current Visit: Yes (2) Anemia Status: Acute Current Visit: Yes Assessment and Plan for All Diagnoses:: Okay for discharge on oral Zyvox (likely 14 day course) and twice daily saline moistened packing twice daily.
--- NOTE | 2017-12-26 08:40 | Pharmacy Consult Notes ---
- Pharmacy Consult Date: 12/26/17 Time: 08:38 Referring provider: DR. PINEDA Reason for Consult:: VANCOMYCIN TROUGH LEVEL Allergies and ADEs:: Allergies Allergy/AdvReac Type Severity Reaction Status Date / Time No Known Allergies Allergy Verified 11/28/17 17:53 Home Medications:: Home Medications Medication Instructions Recorded Confirmed Type Atorvastatin Calcium [Atorvastatin 10 mg PO HS 12/22/17 12/23/17 History 10mg Tab] Calcium Carbonate/Vitamin D3 1 each PO DAILY 12/22/17 12/22/17 History [Oyster [place] Calcium Tablet] Citalopram Hydrobromide [Celexa 20 mg PO BID 12/22/17 12/22/17 History 20mg Tablet] Folic Acid [Folic Acid 1mg tablet] 1 mg PO DAILY 12/22/17 12/23/17 History Gabapentin [Gabapentin 800mg Tab] 800 mg PO TID 12/22/17 12/22/17 History Lisinopril [Lisinopril 10mg Tab] 10 mg PO DAILY 12/22/17 12/22/17 History Meloxicam 15 mg PO DAILY 12/22/17 12/22/17 History Mirtazapine [Remeron] 15 mg PO HS 12/22/17 12/23/17 History [place]-3 Acid Ethyl Esters 1 gm PO BID 12/22/17 12/23/17 History Pantoprazole Sodium [Pantoprazole 20 mg PO DAILY 12/22/17 12/22/17 History 20mg Tab] Quetiapine Fumarate [Seroquel] 600 mg PO HS 12/22/17 12/23/17 History Ropinirole HCl [Requip] 1 mg PO TID 12/22/17 12/22/17 History Tamsulosin HCl [Flomax 0.4mg 0.4 mg PO HS 12/22/17 12/22/17 History capsule] carBAMazepine [carBAMazepine 200mg 400 mg PO BID 12/22/17 12/23/17 History Tablet] clonazePAM [Clonazepam] 1 mg PO BID 12/22/17 12/22/17 History lamoTRIgine [Lamotrigine] 25 mg PO BID 12/22/17 12/22/17 History Ferrous Sulfate [Iron] 65 mg PO DAILY 12/23/17 12/23/17 History Height: 1.75 m Weight: 94.914 kg Laboratory Results:: Laboratory Results - last 24 hr 12/26/17 05:28: WBC 3.9 L D, RBC 4.18 L, Hgb 11.9 L, Hct 36.9 L, MCV 88.1, MCH 28.4, MCHC 32.3, RDW 15.1, Plt Count 267, MPV 6.6 L, Neut % (Auto) 58.2, Lymph % (Auto) 29.8, [place] % (Auto) 7.3, Eos % (Auto) 3.7, Baso % (Auto) 1.1, Neut # (Auto) 2.3, Lymph # (Auto) 1.2, [place] # (Auto) 0.3, Eos # (Auto) 0.1, Baso # (Auto) 0.0 12/26/17 05:28: Sodium 140, Potassium 3.6, Chloride 107, Carbon Dioxide 26, Anion Gap 10.6, BUN 4 L D, Creatinine 0.73 D, Estimated Creat Clear 166, Estimated GFR 115, Est GFR ( Amer) 139 D, Glucose 85, Calcium 8.3 L, Total Bilirubin 0.3, AST 15, ALT 17, Alkaline Phosphatase 105, Total Protein 5.7 L, Albumin 2.1 L, Globulin 3.6 H, Albumin/Globulin Ratio 0.6 L 12/26/17 05:28: Vancomycin Trough 23.6 H Medical History: Reports:: Hypertension, Seizures Denies:: Cancer, Diabetes Mellitus Type 1, Diabetes Mellitus Type 2, Internal Pacemaker, MRSA Assessment and Plan (1) Abscess of skin or subcutaneous tissue Current visit: Yes Status: Acute Qualifiers: Site of cutaneous abscess: buttock Qualified Code(s): L02.31 - Cutaneous abscess of buttock Category: Medical Code(s): L02.91 - Cutaneous abscess, unspecified (2) Anemia Current visit: Yes Status: Acute Qualifiers: Anemia type: unspecified type Qualified Code(s): D64.9 - Anemia, unspecified Category: Medical Code(s): D64.9 - Anemia, unspecified - Assessment and plan all Dx Assessment and Plan for all problems:: BASED ON PATIENT FACTORS AND VANCOMYCIN TROUGH LEVEL, RECOMMEND CONTINUING DOSE OF VANCOMYCIN 2GM AND CHANGING INTERVAL TO Q24H. PHARMACY WILL CONTINUE TO MONITOR DAILY AND ADJUST APPROPRIATE.
--- NOTE | 2017-12-26 09:56 | Discharge Summary ---
General - General Admission date:: 12/24/17 Discharge date: 12/26/17 HPI HPI: Patient is a 47-year-old white male who is a resident at a long term in [place]. He has reported history of Crohn's disease and seizure disorder. He has an area on the right gluteal region which he states is been present for 5-7 days. He states that 2 days ago he had developed some drainage. He was brought to the emergency department for evaluation and was admitted for inpatient management. He was started on intravenous antibiotics and surgical consultation was obtained. Of note, the patient also complains of "boils" under each arm. He states that the left side seems to be worse than the right. Hospital Course Hospital Course: surgery consult see note wound cx positive for staphylococcus aureus and strep pyogenes dressings per home health [facility] with follow up in 2 weeks with jeffrey Objective Vital signs: Temp Pulse Resp BP Pulse Ox 98.0 F 89 18 155/88 96 12/26/17 03:41 12/26/17 08:00 12/26/17 09:14 12/26/17 08:00 12/26/17 08:00 - *Routine HEENT Exam Head: Present: normocephalic Eye: Present: EOMI ENT: Present: mucous membranes moist - *Routine Neck Exam Present: supple - *Routine Respiratory Exam Present: CTA bilaterally - *Routine Cardiovascular Exam Present: RRR - *Routine Abdominal Exam Present: soft, normoactive bowel sounds - *Routine Extremities Exam Comments: golf ball size enlarged lymp node left axill - *Routine Skin Exam Comments: wound to buttocks dressing in place - *Routine Neurological Exam Present: alert, oriented X3, CN II-XII intact - Routine Psychiatric Exam Present: normal affect, normal thought process Results Labs on day of discharge: Labs from last 24 hours 12/26/17 12/26/17 12/26/17 05:28 05:28 05:28 WBC 3.9 L D RBC 4.18 L Hgb 11.9 L Hct 36.9 L MCV 88.1 MCH 28.4 MCHC 32.3 RDW 15.1 Plt Count 267 MPV 6.6 L Neut % (Auto) 58.2 Lymph % (Auto) 29.8 [place] % (Auto) 7.3 Eos % (Auto) 3.7 Baso % (Auto) 1.1 Neut # (Auto) 2.3 Lymph # (Auto) 1.2 [place] # (Auto) 0.3 Eos # (Auto) 0.1 Baso # (Auto) 0.0 Sodium 140 Potassium 3.6 Chloride 107 Carbon Dioxide 26 Anion Gap 10.6 BUN 4 L D Creatinine 0.73 D Estimated Creat Clear 166 Estimated GFR 115 Est GFR ( Amer) 139 D Glucose 85 Calcium 8.3 L Total Bilirubin 0.3 AST 15 ALT 17 Alkaline Phosphatase 105 Total Protein 5.7 L Albumin 2.1 L Globulin 3.6 H Albumin/Globulin Ratio 0.6 L Vancomycin Trough 23.6 H Preliminary micro results at discharge 12/23/17 13:00 Abscess Culture - Preliminary Buttock - Abscess Staphylococcus aureus 12/22/17 15:10 Blood Culture - Preliminary Blood NO GROWTH AFTER 48 HOURS 12/22/17 15:10 Blood Culture - Preliminary Blood NO GROWTH AFTER 48 HOURS - Additional Comments rounded with ivette, all orders per ivette DS: Diagnosis - Discharge Diagnosis (1) Abscess of skin or subcutaneous tissue Status: Acute (2) Anemia Status: Acute (3) Seizure disorder Status: Acute Discharge Plan - Patient Discharge Instructions ACTIVITY: Continue current activity DIET: continue same diet - Follow up Plan Follow up with: Joe Mccollum MD [Staff Physician] - 1 week Disposition: Home, Self-Shelter Medications: Home Medications Medication Instructions Recorded Confirmed Type Atorvastatin Calcium [Atorvastatin 10 mg PO HS 12/22/17 12/23/17 History 10mg Tab] Calcium Carbonate/Vitamin D3 1 each PO DAILY 12/22/17 12/22/17 History [[place]yster [place] Calcium Tablet] Citalopram Hydrobromide [Celexa 20 mg PO BID 12/22/17 12/22/17 History 20mg Tablet] Folic Acid [Folic Acid 1mg tablet] 1 mg PO DAILY 12/22/17 12/23/17 History Gabapentin [Gabapentin 800mg Tab] 800 mg PO TID 12/22/17 12/22/17 History Lisinopril [Lisinopril 10mg Tab] 10 mg PO DAILY 12/22/17 12/22/17 History Meloxicam 15 mg PO DAILY 12/22/17 12/22/17 History Mirtazapine [Remeron] 15 mg PO HS 12/22/17 12/23/17 History [place]-3 Acid Ethyl Esters 1 gm PO BID 12/22/17 12/23/17 History Pantoprazole Sodium [Pantoprazole 20 mg PO DAILY 12/22/17 12/22/17 History 20mg Tab] Quetiapine Fumarate [Seroquel] 600 mg PO HS 12/22/17 12/23/17 History Ropinirole HCl [Requip] 1 mg PO TID 12/22/17 12/22/17 History Tamsulosin HCl [Flomax 0.4mg 0.4 mg PO HS 12/22/17 12/22/17 History capsule] carBAMazepine [carBAMazepine 200mg 400 mg PO BID 12/22/17 12/23/17 History Tablet] clonazePAM [Clonazepam] 1 mg PO BID 12/22/17 12/22/17 History lamoTRIgine [Lamotrigine] 25 mg PO BID 12/22/17 12/22/17 History Ferrous Sulfate [Iron] 65 mg PO DAILY 12/23/17 12/23/17 History Prescriptions/Medication Reconciliation: New Linezolid [Zyvox] 600 mg PO BID 14 Days #28 tab Continue Lisinopril [Lisinopril 10mg Tab] 10 mg PO DAILY Ropinirole HCl [Requip] 1 mg PO TID Quetiapine Fumarate [Seroquel] 600 mg PO HS [place]-3 Acid Ethyl Esters 1 gm PO BID Mirtazapine [Remeron] 15 mg PO HS lamoTRIgine [Lamotrigine] 25 mg PO BID Gabapentin [Gabapentin 800mg Tab] 800 mg PO TID Folic Acid [Folic Acid 1mg tablet] 1 mg PO DAILY clonazePAM [Clonazepam] 1 mg PO BID Citalopram Hydrobromide [Celexa 20mg Tablet] 20 mg PO BID carBAMazepine [carBAMazepine 200mg Tablet] 400 mg PO BID Calcium Carbonate/Vitamin D3 [Oyster Shell Calcium Tablet] 1 each PO DAILY Atorvastatin Calcium [Atorvastatin 10mg Tab] 10 mg PO HS Tamsulosin HCl [Flomax 0.4mg capsule] 0.4 mg PO HS Pantoprazole Sodium [Pantoprazole 20mg Tab] 20 mg PO DAILY Meloxicam 15 mg PO DAILY Ferrous Sulfate [Iron] 65 mg PO DAILY
== END 2017-12-26 15:45 | disposition home or self-care (01) ==
LOC: 2ND 14:12 → ER 14:12 → 2ND 16:47
PROVIDERS: ADMIT Emergency Medicine; ATTEND Emergency Medicine
CPT/HCPCS: 36415; 71020; 71046; 80048; 80053; 80076; 80202; 83036; 83605; 83735; 85025; 85651; 87040; 87070; 87075; 87077; 87186; 87205; 97161; 99284; G0378; J2405; J3370; S0077